=== PATIENT | female | born 1950 | race Two or more races ===

== ENCOUNTER 2019-05-02 11:18 | Emergency (ER) | payer MEDICARE, OTHER ==
[~2019-05-02] VITALS: Ht 142.2 cm; Wt 72.6 kg
[2019-05-02 11:43] VITALS: BP 159/68
--- NOTE | 2019-05-02 12:40 | PHYS DOC ---
Past Medical History Past Medical History: Other Additional Past Medical Histor: RENAL FAILURE Past Surgical History: Appendectomy, Hysterectomy Additional Past Surgical Histo: LEFT ARM FISTULA Alcohol Use: None Drug Use: None Adult General Chief Complaint Chief Complaint: NAUSEA/VOMITING/DIARRHA HPI HPI Patient is a 68-year-old female who presents to the emergency department for evaluation. History was obtained via a bilingual nurse serving as credit card associate. Patient states that this morning she awakened with some upper abdominal discomfort and vomited once. While vomiting she felt lightheaded which caused her to become anxious, because she lives alone, so she presented to the emergency department for evaluation. Her dizziness has resolved, but she continues to complain of some mild abdominal pain diffusely mostly in her upper abdomen. She has not had any fevers or chills, diarrhea, hematemesis, chest pain, or shortness of breath. She denies any headache. Her last dialysis was yesterday and his next scheduled for tomorrow. There are no alleviating or exac erbating factors to her symptoms otherwise. Review of Systems Review of Systems Constitutional: Denies fever or chills [] Eyes: Denies change in visual acuity, redness, or eye pain [] HENT: Denies nasal congestion or sore throat [] Respiratory: Denies cough or shortness of breath [] Cardiovascular: The patient denies any shortness of breath, chest pain, pal pitations, or orthopnea [] GI: Denies bloody emesis, bloody stools or diarrhea [] : Denies dysuria or hematuria, makes only minute amounts of urine [] Musculoskeletal: Denies back pain or joint pain [] Integument: Denies rash or skin lesions [] Neurologic: Denies headache, focal weakness or sensory changes [] Endocrine: Denies polyuria or polydipsia [] All other systems were reviewed and found to be within normal limits, except as documented in this note. Current Medications Current Medications Current Medications Medications (Trade) Dose Ordered Sig/Nito Start Time Stop Time Status Last Admin Dose Admin Morphine Sulfate (Morphine Sulfate) 4 mg PRN Q15MIN PRN 05/02/19 12:45 05/03/19 12:44 05/02/19 12:50 4 MG Ondansetron HCl (Zofran) 4 mg 1X ONCE 05/02/19 14:15 05/02/19 14:19 DC 05/02/19 14:27 4 MG Allergies Allergies Allergies Coded Allergies Type Severity Reaction Last Updated Verified No Known Drug Allergies 05/02/19 No Physical Exam Physical Exam PHYSICAL EXAM: CONSTITUTIONAL: Well developed, well nourished HEAD: normocephalic, atraumatic EENT: PERRL, EOMI. Conjunctivae normal color, sclerae non-icteric; moist mucous membranes. NECK: Supple, non-tender; no meningismus. LUNGS: Lungs CTA, breathing even and unlabored. Normal air movement. HEART: Regular rate and rhythm, no murmur CHEST: No deformity; non-tender ABDOMEN: The abdomen is soft, there is mild diffuse tenderness to palpation to the entire abdomen, most prominent in the epigastric area, Cervantes sign is absent, although there is some right upper quadrant tenderness, there is no rebound or guarding, normal bowel sounds are present, no masses or bruits. EXTREM: Normal ROM; no deformity, no calf tenderness. Normal pulses palpable in all extremities. There is no pedal edema. SKIN: No rash; no diaphoresis NEURO: Alert; normal speech and cognition; CN's grossly intact; strength grossly intact without focal deficit. BACK: No CVA TTP. Current Patient Data Vital Signs Vital Signs Date Time Temp Pulse Resp B/P (MAP) Pulse Ox O2 Delivery O2 Flow Rate FiO2 05/02/19 11:43 98.5 79 18 159/68 (98) 100 Room Air 98.5 Lab Values Laboratory Tests Test 05/02/19 12:00 05/02/19 13:35 White Blood Count 1.2 x10^3/uL (4.0-11.0) *L Red Blood Count 2.99 x10^6/uL (3.50-5.40) L Hemoglobin 10.6 g/dL (12.0-15.5) L Hematocrit 31.4 % (36.0-47.0) L Mean Corpuscular Volume 105 fL (79-100) H Mean Corpuscular Hemoglobin 36 pg (25-35) H Mean Corpuscular Hemoglobin Concent 34 g/dL (31-37) Red Cell Distribution Width 15.2 % (11.5-14.5) H Platelet Count 44 x10^3/uL (140-400) L Neutrophils (%) (Auto) 46 % (31-73) Lymphocytes (%) (Auto) 51 % (24-48) H Monocytes (%) (Auto) 3 % (0-9) Eosinophils (%) (Auto) 0 % (0-3) Basophils (%) (Auto) 1 % (0-3) Neutrophils # (Auto) 0.5 x10^3/uL (1.8-7.7) L Lymphocytes # (Auto) 0.6 x10^3/uL (1.0-4.8) L Monocytes # (Auto) 0.0 x10^3/uL (0.0-1.1) Eosinophils # (Auto) 0.0 x10^3/uL (0.0-0.7) Basophils # (Auto) 0.0 x10^3/uL (0.0-0.2) Segmented Neutrophils % 50 % (35-66) Lymphocytes % 48 % (24-48) Monocytes % 2 % (0-10) Platelet Estimate Decreased (ADEQUATE) Prothrombin Time 13.3 SEC (11.7-14.0) Prothrombin Time INR 1.0 (0.8-1.1) Activated Partial Thromboplast Time 32 SEC (24-38) Sodium Level 149 mmol/L (136-145) H Potassium Level 5.1 mmol/L (3.5-5.1) Chloride Level 106 mmol/L (98-107) Carbon Dioxide Level 33 mmol/L (21-32) H Anion Gap 10 (6-14) Blood Urea Nitrogen 22 mg/dL (7-20) H Creatinine 4.6 mg/dL (0.6-1.0) H Estimated GFR (Cockcroft-Gault) 9.5 BUN/Creatinine Ratio 5 (6-20) L Glucose Level 98 mg/dL (70-99) Calcium Level 9.1 mg/dL (8.5-10.1) Total Bilirubin 1.1 mg/dL (0.2-1.0) H Aspartate Amino Transferase (AST) 14 U/L (15-37) L Alanine Aminotransferase (ALT) 15 U/L (14-59) Alkaline Phosphatase 133 U/L (46-116) H Troponin I Quantitative 0.090 ng/mL (0.000-0.055) Total Protein 7.2 g/dL (6.4-8.2) Albumin 3.8 g/dL (3.4-5.0) Albumin/Globulin Ratio 1.1 (1.0-1.7) Lipase 104 U/L (73-393) Lactic Acid Level 0.6 mmol/L (0.4-2.0) Laboratory Tests 05/02/19 12:00 Laboratory Tests 05/02/19 12:00 EKG EKG [] Normal sinus rhythm with a normal rate, normal axis, normal intervals, there are no acute ischemic ST/T changes. Radiology/Procedures Radiology/Procedures []PROCEDURE: CT ABDOMEN PELVIS WO CONTRAST CT STUDY OF THE ABDOMEN AND PELVIS WITHOUT CONTRAST Clinical indications: Abdominal pain. TECHNIQUE: Noncontrast helical CT scanning of the abdomen and pelvis was performed. Without contrast, the sensitivity to detect organ pathology and GI tract pathology is decreased. PQRS compliance Statement One or more of the following individualized dose reduction techniques were utilized for this study: 1. Automated exposure control 2. Adjustment of the mA and/or kV according to patient size 3. Use of iterative reconstruction technique COMPARISON: None available. FINDINGS: The liver and spleen and pancreas are unremarkable on this noncontrast study. The gallbladder is normal and no extra hepatic biliary ductal dilatation is seen. No adrenal mass is evident. No hydronephrosis or hydroureter is seen on either side. No urinary tract stone is evident. Perinephric inflammatory change is seen bilaterally. Urinary bladder wall is smooth. No uterine mass is evident. No dominant ovarian cyst or mass is seen. No focal aneurysmal dilatation of the abdominal aorta is seen. No enlarged abdominal or pelvic lymphadenopathy is evident. The terminal ileum is unremarkable. Surgical clips are seen adjacent to the base of the cecum consistent with a previous appendectomy. No obstructive bowel pattern is evident. No free air or free fluid or mesenteric edema is seen. No lytic process is evident. No lung base consolidation is seen. IMPRESSION: Bilateral perinephric inflammatory change is seen. This may be seen with pyelonephritis if there are clinical findings of such. No obstructive uropathy is evident otherwise. No other acute abnormality is evident. PROCEDURE: ABDOMEN LTD Limited abdomen ultrasound HISTORY: Right upper quadrant pain. FINDINGS: Visualized pancreas appears unremarkable. Inferior vena cava is visualized. Liver appears unremarkable without enlargement or definite focal lesion. Gallbladder contains several small echogenic structures, most likely gallstones. Note that these do not all appear dependent, however. Gallbladder wall thickness measures 2.4 mm. No significant pericholecystic fluid. No significant biliary ductal dilatation. Right kidney measures 7.7 cm longitudinal without hydronephrosis. IMPRESSION: 1. Several small echogenic structures within the gallbladder suspicious for gallstones, although note that these do not all demonstrate typical dependent layering. Gallbladder wall thickness upper limits but not definitely abnormal. Short-term ultrasound follow-up could be of benefit depending on clinical management. Findings discussed with Dr. Brian in the emergency room at the time of this report. 2. Small or atrophic right kidney. Course & Med Decision Making Course & Med Decision Making Pertinent Labs and Imaging studies reviewed. (See chart for details) [] 2:40 PM: The patient's condition remains stable. She is feeling significantly better at this time. I am uncertain of the etiology of her symptoms. I discussed overnight observation with the patient but she feels well enough to go home and would like to do so. I did obtain labs from her dialysis center, drawn 04/15, and her hematological abnormalities which are present today were present then as well, with a white count of 1.6 and a platelet count of 34 as well. I discussed importance of outpatient follow-up and return precautions in detail.I am unable to assess her rule out the possibility of a UTI because the patient does not make any significant amounts of urine and is not able to provide a urine specimen in the emergency department. She'll be treated empirically based on the CT findings. Dragon Disclaimer Dragon Disclaimer This electronic medical record was generated, in whole or in part, using a voice recognition dictation system. Departure Departure Impression: Primary Impression: Nausea & vomiting Additional Impressions: ESRD (end stage renal disease) Leukopenia Disposition: 01 HOME, SELF-CARE Condition: STABLE Referrals: MEDHAT DIMAS MD Patient Instructions: Nausea and Vomiting Scripts Ondansetron Hcl (ZOFRAN) 4 Mg Tablet 1 TAB PO Q6HRS PRN for NAUSEA/VOMITING, #20 TAB Prov: KRISSY BRIAN MD 05/02/19 Cephalexin (KEFLEX) 500 Mg Capsule 500 MG PO QID for 7 Days, #28 CAP Prov: KRISSY BRIAN MD 05/02/19 Problem Qualifiers KRISSY BRIAN MD May 02, 2019 12:40
[2019-05-02] MEDS ORDERED: MORPHINE SULFATE 4 MG/ML VIAL. IV/SQ PRN (12:45)
--- NOTE | 2019-05-02 12:45 | EKG ---
[facility] [address] [place] [address] Test Date: 2019-05-02 Test Time: 11:54:49 Pat Name: RICCARDO PEÑA Department: Room: Gender: F Clamper: : 1950 Requested By: KRISSY BRIAN Order Number: [id number] Reading MD: Measurements Intervals [place] Rate: 73 P: 38 WV: 154 QRS: 16 QRSD: 84 T: 29 QT: 394 QTc: 437 Interpretive Statements SINUS RHYTHM NORMAL ECG No previous ECG available for comparison
[2019-05-02 13:22] LABS: BASO % 1 % (0-3); CALCIUM 9.1 mg/dL (8.5-10.1); CREATININE 4.6 mg/dL (0.6-1.0); EOS % 0 % (0-3); GFR 9.5; HEMATOCRIT 31.4 % (36.0-47.0); HEMOGLOBIN 10.6 g/dL (12.0-15.5); LYMPH # 0.6 x10^3/uL (1.0-4.8); LYMPH % 51 % (24-48); MEAN CORPUSCULAR HEMOGLOBIN 36 pg (25-35); MEAN CORPUSCULAR HGB CONC 34 g/dL (31-37); MEAN CORPUSCULAR VOLUME 105 fL (79-100); MONO % 3 % (0-9); NEUT # 0.5 x10^3/uL (1.8-7.7); NEUT % 46 % (31-73); PLATELET COUNT 44 x10^3/uL (140-400); POTASSIUM 5.1 mmol/L (3.5-5.1); RED BLOOD COUNT 2.99 x10^6/uL (3.50-5.40); RED CELL DISTRIBUTION WIDTH 15.2 % (11.5-14.5)
[2019-05-02 13:23] LABS: PROTHROMBIN TIME PATIENT 13.3 SEC (11.7-14.0)
[2019-05-02 13:25] LABS: WHITE BLOOD COUNT 1.2 x10^3/uL (4.0-11.0)
[2019-05-02 13:27] LABS: ALBUMIN 3.8 g/dL (3.4-5.0); ALBUMIN/GLOBULIN RATIO 1.1 (1.0-1.7); TOTAL BILIRUBIN 1.1 mg/dL (0.2-1.0); TOTAL PROTEIN 7.2 g/dL (6.4-8.2)
--- NOTE | 2019-05-02 13:41 | RAD ---
Limited abdomen ultrasound HISTORY: Right upper quadrant pain. FINDINGS: Visualized pancreas appears unremarkable. Inferior vena cava is visualized. Liver appears unremarkable without enlargement or definite focal lesion. Gallbladder contains several small echogenic structures, most likely gallstones. Note that these do not all appear dependent, however. Gallbladder wall thickness measures 2.4 mm. No significant pericholecystic fluid. No significant biliary ductal dilatation. Right kidney measures 7.7 cm longitudinal without hydronephrosis. IMPRESSION: 1. Several small echogenic structures within the gallbladder suspicious for gallstones, although note that these do not all demonstrate typical dependent layering. Gallbladder wall thickness upper limits but not definitely abnormal. Short-term ultrasound follow-up could be of benefit depending on clinical management. Findings discussed with Dr. Mora in the emergency room at the time of this report. 2. Small or atrophic right kidney. Electronically signed by: Antony Norris MD (05/02/2019 1:38 PM) [id number]
[2019-05-02 14:07] LABS: % LYMPHS 48 % (24-48); % MONOS 2 % (0-10); % SEGS 50 % (35-66); PLT ESTIMATE DECREASED (ADEQUATE)
[2019-05-02] MEDS ORDERED: ONDANSETRON PF 4 MG/2 ML VIAL. IVP ONE (14:15)
--- NOTE | 2019-05-02 14:19 | RAD ---
CT STUDY OF THE ABDOMEN AND PELVIS WITHOUT CONTRAST Clinical indications: Abdominal pain. TECHNIQUE: Noncontrast helical CT scanning of the abdomen and pelvis was performed. Without contrast, the sensitivity to detect organ pathology and GI tract pathology is decreased. PQRS compliance Statement One or more of the following individualized dose reduction techniques were utilized for this study: 1. Automated exposure control 2. Adjustment of the mA and/or kV according to patient size 3. Use of iterative reconstruction technique COMPARISON: None available. FINDINGS: The liver and spleen and pancreas are unremarkable on this noncontrast study. The gallbladder is normal and no extra hepatic biliary ductal dilatation is seen. No adrenal mass is evident. No hydronephrosis or hydroureter is seen on either side. No urinary tract stone is evident. Perinephric inflammatory change is seen bilaterally. Urinary bladder wall is smooth. No uterine mass is evident. No dominant ovarian cyst or mass is seen. No focal aneurysmal dilatation of the abdominal aorta is seen. No enlarged abdominal or pelvic lymphadenopathy is evident. The terminal ileum is unremarkable. Surgical clips are seen adjacent to the base of the cecum consistent with a previous appendectomy. No obstructive bowel pattern is evident. No free air or free fluid or mesenteric edema is seen. No lytic process is evident. No lung base consolidation is seen. IMPRESSION: Bilateral perinephric inflammatory change is seen. This may be seen with pyelonephritis if there are clinical findings of such. No obstructive uropathy is evident otherwise. No other acute abnormality is evident. Electronically signed by: Rehan Daniel MD (05/02/2019 2:15 PM) [id number]
[2019-05-02] MEDS ORDERED: CEPH-264 PO (14:44)
[2019-05-02] MEDS ORDERED: ONDA4TAB7 PO (14:44)
[2019-05-02] MEDS ORDERED: cefTRIAXone IV Push 1 GM VIAL. IVP ONE (14:45)
== END 2019-05-02 15:10 | disposition home or self-care (01) ==
LOC: ER 11:18
DX: N18.6 End stage renal disease (principal); D72.819 Decreased white blood cell count, unspecified; R11.2 Nausea with vomiting, unspecified; Z90.89 Acquired absence of other organs; Z90.710 Acquired absence of both cervix and uterus
CPT/HCPCS: 36415; 74176; 76705; 80053; 83605; 83690; 84484; 85007; 85025; 85610; 85730; 93005; 96374; 96375; 99285; J0696; J2270; J2405

== ENCOUNTER 2019-07-08 23:07 | Inpatient (IN) | payer MEDICARE, OTHER ==
[~2019-07-08] VITALS: Ht 152.4 cm; Wt 53.7 kg
[~2019-07-08 23:07] MED LIST: CEPH-264 PO; ONDA4TAB7 PO
[2019-07-08 23:40] LABS: CALCIUM 8.3 mg/dL (8.5-10.1); CREATININE 3.7 mg/dL (0.6-1.0); GFR 12.3
[2019-07-08 23:45] LABS: ALBUMIN 3.5 g/dL (3.4-5.0); ALBUMIN/GLOBULIN RATIO 0.9 (1.0-1.7); BASO % 0 % (0-3); EOS % 0 % (0-3); LYMPH # 0.8 x10^3/uL (1.0-4.8); LYMPH % 55 % (24-48); MEAN CORPUSCULAR HEMOGLOBIN 38 pg (25-35); MEAN CORPUSCULAR HGB CONC 35 g/dL (31-37); MEAN CORPUSCULAR VOLUME 109 fL (79-100); MONO # 0.5 x10^3/uL (0.0-1.1); MONO % 39 % (0-9); NEUT # 0.1 x10^3/uL (1.8-7.7); NEUT % 6 % (31-73); RED BLOOD COUNT 1.75 x10^6/uL (3.50-5.40); RED CELL DISTRIBUTION WIDTH 15.3 % (11.5-14.5); TOTAL BILIRUBIN 1.1 mg/dL (0.2-1.0); TOTAL PROTEIN 7.6 g/dL (6.4-8.2)
--- NOTE | 2019-07-08 23:46 | PHYS DOC ---
Past Medical History Past Medical History: High Cholesterol, Hypertension, Other Additional Past Medical Histor: RENAL FAILURE Past Surgical History: Appendectomy, Hysterectomy Additional Past Surgical Histo: LEFT ARM FISTULA Alcohol Use: None Drug Use: None Adult General Chief Complaint Chief Complaint: DENTAL PROBLEM HPI HPI Patient is a 68-year-old female who presents with report of bleeding gums that started this evening. Patient indicates that she started the taste something salty in her mouth and looked and saw that she had some bleeding gums. Patient states that she decided to brush her teeth at this point and the bleeding got worse. Patient states that she has never had this happen before. Patient is on hemodialysis and was dialyzed earlier today.[] Review of Systems Review of Systems Constitutional: Denies fever or chills [] HENT: Positive bleeding gums[] Respiratory: Denies cough or shortness of breath [] Cardiovascular: No additional information not addressed in HPI [] Integument: Denies rash or skin lesions [] All other systems were reviewed and found to be within normal limits, except as documented in this note. Current Medications Current Medications Current Medications Medications (Trade) Dose Ordered Sig/Nito Start Time Stop Time Status Last Admin Dose Admin Ondansetron HCl (Zofran) 4 mg PRN Q8HRS PRN 07/09/19 00:30 07/10/19 00:29 Allergies Allergies Allergies Coded Allergies Type Severity Reaction Last Updated Verified No Known Drug Allergies 05/02/19 No Physical Exam Physical Exam Constitutional: Well developed, well nourished, no acute distress, non-toxic appearance. [] HENT: Normocephalic, atraumatic, bilateral external ears normal, oropharynx moist, examination of mouth demonstrates gingival bleeding diffusely, nose normal. [] Eyes: PERRLA, EOMI, conjunctiva normal, no discharge. [] Neck: Normal range of motion, no tenderness, supple. [] Cardiovascular: Regular rate and rhythm[] Lungs & Thorax: Bilateral breath sounds clear to auscultation [] Abdomen: Bowel sounds normal, soft, no tenderness. [] Skin: Warm, dry, no erythema, no rash. [] Extremities: No tenderness, no cyanosis, no clubbing, ROM intact, no edema. [] Neurologic: Awake and alert, no focal deficits noted. [] Current Patient Data Vital Signs Vital Signs Date Time Temp Pulse Resp B/P (MAP) Pulse Ox O2 Delivery O2 Flow Rate FiO2 07/08/19 23:10 98.2 101 14 145/65 (91) 100 Room Air 98.2 Lab Values Laboratory Tests Test 07/08/19 23:25 White Blood Count 1.4 x10^3/uL (4.0-11.0) *L Red Blood Count 1.75 x10^6/uL (3.50-5.40) L Hemoglobin 6.6 g/dL (12.0-15.5) *L Hematocrit 19.0 % (36.0-47.0) *L Mean Corpuscular Volume 109 fL (79-100) H Mean Corpuscular Hemoglobin 38 pg (25-35) H Mean Corpuscular Hemoglobin Concent 35 g/dL (31-37) Red Cell Distribution Width 15.3 % (11.5-14.5) H Platelet Count 9 x10^3/uL (140-400) *L Neutrophils (%) (Auto) 6 % (31-73) L Lymphocytes (%) (Auto) 55 % (24-48) H Monocytes (%) (Auto) 39 % (0-9) H Eosinophils (%) (Auto) 0 % (0-3) Basophils (%) (Auto) 0 % (0-3) Neutrophils # (Auto) 0.1 x10^3/uL (1.8-7.7) L Lymphocytes # (Auto) 0.8 x10^3/uL (1.0-4.8) L Monocytes # (Auto) 0.5 x10^3/uL (0.0-1.1) Eosinophils # (Auto) 0.0 x10^3/uL (0.0-0.7) Basophils # (Auto) 0.0 x10^3/uL (0.0-0.2) Platelet Estimate Pending Prothrombin Time 13.4 SEC (11.7-14.0) Prothrombin Time INR 1.1 (0.8-1.1) Activated Partial Thromboplast Time 37 SEC (24-38) Sodium Level 141 mmol/L (136-145) Potassium Level 4.0 mmol/L (3.5-5.1) Chloride Level 103 mmol/L (98-107) Carbon Dioxide Level 34 mmol/L (21-32) H Anion Gap 4 (6-14) L Blood Urea Nitrogen 12 mg/dL (7-20) Creatinine 3.7 mg/dL (0.6-1.0) H Estimated GFR (Cockcroft-Gault) 12.3 BUN/Creatinine Ratio 3 (6-20) L Glucose Level 120 mg/dL (70-99) H Calcium Level 8.3 mg/dL (8.5-10.1) L Total Bilirubin 1.1 mg/dL (0.2-1.0) H Aspartate Amino Transferase (AST) 18 U/L (15-37) Alanine Aminotransferase (ALT) 9 U/L (14-59) L Alkaline Phosphatase 120 U/L (46-116) H Total Protein 7.6 g/dL (6.4-8.2) Albumin 3.5 g/dL (3.4-5.0) Albumin/Globulin Ratio 0.9 (1.0-1.7) L Laboratory Tests 07/08/19 23:25 Laboratory Tests 07/08/19 23:25 EKG EKG [] Radiology/Procedures Radiology/Procedures [] Course & Med Decision Making Course & Med Decision Making Pertinent Labs and Imaging studies reviewed. (See chart for details) Upon completion of workup, patient's case discussed with Dr. Donaldson along with HIT being in the differential. I did discuss option of treating with IVIG empirically; however, Dr. Donaldson wishes to wait for Dr. Rivera's assessment first. Patient will be transfused one unit of packed red blood cells and 2 units of platelets as discussed with Dr Donaldson. Dragon Disclaimer Dragon Disclaimer This electronic medical record was generated, in whole or in part, using a voice recognition dictation system. Departure Departure Impression: Primary Impression: Pancytopenia Additional Impressions: Acute blood loss anemia Gingival bleeding Disposition: ADMITTED INPATIENT Admitting Physician: Sherif Donaldson Condition: GOOD Referrals: NO PCP (PCP) Problem Qualifiers ANGELITO KENNY Jr. DO Jul 08, 2019 23:46
[2019-07-08 23:51] LABS: PROTHROMBIN TIME PATIENT 13.4 SEC (11.7-14.0)
[2019-07-09] VITALS (12 sets, daily range): BP systolic 119–140; BP diastolic 60–82
[2019-07-09 00:05] LABS: HEMOGLOBIN 6.6 g/dL (12.0-15.5); PLATELET COUNT 9 x10^3/uL (140-400); WHITE BLOOD COUNT 1.4 x10^3/uL (4.0-11.0)
[2019-07-09] MEDS ORDERED: ONDANSETRON PF 4 MG/2 ML VIAL. IV PRN (00:30)
--- NOTE | 2019-07-09 02:32 | NUR ---
Pt arrived to room 256 per wheelchair accompanied by son,pt oriented to surroundings vs obtained and stable assessment completed pt denies pain at time of assessment. Poc explained pt call light placed in reach pt reminded to call for assistance prior to getting oob. Pt spitting out bright red blood during assessment will continue to monitor pt.
--- NOTE | 2019-07-09 02:35 | NUR ---
Pt first unit of Prbc's started and pt tolerated well will continue to monitor.
[2019-07-09] MEDS ORDERED: AMLO5TAB10 PO (02:41)
[2019-07-09] MEDS ORDERED: ATOR40TA59 PO (02:41)
[2019-07-09] MEDS ORDERED: FOLI0.8C PO (02:41)
[2019-07-09] MEDS ORDERED: ASPI81TA59 PO (02:41)
--- NOTE | 2019-07-09 05:04 | NUR ---
Pt platlets infusing as per order, will cont to monitor. pmrn
--- NOTE | 2019-07-09 05:28 | NUR ---
pt platlet transfusion complete, pt tolerated well, family at bedside will cont to monitor pt status and safety. pmrn
[2019-07-09 07:33] LABS: BASO % 0 % (0-3); EOS % 0 % (0-3); HEMATOCRIT 21.3 % (36.0-47.0); HEMOGLOBIN 7.4 g/dL (12.0-15.5); LYMPH # 0.6 x10^3/uL (1.0-4.8); LYMPH % 44 % (24-48); MEAN CORPUSCULAR HEMOGLOBIN 37 pg (25-35); MEAN CORPUSCULAR HGB CONC 35 g/dL (31-37); MEAN CORPUSCULAR VOLUME 105 fL (79-100); MONO # 0.7 x10^3/uL (0.0-1.1); MONO % 49 % (0-9); NEUT # 0.1 x10^3/uL (1.8-7.7); NEUT % 7 % (31-73); PLATELET COUNT 38 x10^3/uL (140-400); RED BLOOD COUNT 2.02 x10^6/uL (3.50-5.40); RED CELL DISTRIBUTION WIDTH 16.2 % (11.5-14.5)
[2019-07-09 07:49] LABS: WHITE BLOOD COUNT 1.3 x10^3/uL (4.0-11.0)
--- NOTE | 2019-07-09 09:16 | NUR ---
SW following. JUDY contacted [facility] stating pt needing transfer to for suspected Leukemia which we are unable to treat. Dr. Rivera had apparently contacted and there is an accepting physician, Dr. Tang. [facility] contact transfer line ([phone], fax: [phone]). [facility] faxed clinical information. Awaiting confirmation. JUDY notified. Addendum: 07/09/19 at 1151 by RANDEE GONZALEZ Pt accepted for transfer to . First in line for [facility] transportation. JUDY notified.
[2019-07-09 09:38] LABS: % LYMPHS 45 % (24-48); % MONOS 4 % (0-10); % SEGS 4 % (35-66); NUCLEATED RBC 1
[2019-07-09 09:45] LABS: PLT ESTIMATE DECREASED (ADEQUATE)
[2019-07-09 09:46] LABS: ANISOCYTOSIS SLIGHT; POLYCHROMASIA SLIGHT
[2019-07-09 09:47] LABS: OVALOCYTES FEW; TEAR DROP CELLS OCC
[2019-07-09 09:48] LABS: % BLASTS 47 % (0-0)
--- NOTE | 2019-07-09 11:00 | PDOC ---
Provider Note Provider Note H&P dictated.#[id number]. ANALILIA ARREGUIN MD Jul 09, 2019 11:00
--- NOTE | 2019-07-09 11:11 | PDOC ---
Provider Note Provider Note Hem/Onc Consult: PANCYTOPENIA WITH MARKED ABSOLUTE NEUTROPENIA AND MANY CIRCULATING BLASTS NOTED. FINDINGS ARE COMPATIBLE WITH AN ACUTE LEUKEMIA. I d/w DR Mirna Veliz, PATHOLOGIST. I d/w Dr Zach Da Silva at Leukemia service who will accept pt in transfer for further management. See dictation # [id number] KINSEY GOLDMAN MD Jul 09, 2019 11:11
--- NOTE | 2019-07-09 11:21 | HP ---
ADMIT DATE: 07/09/2019 MEDICAL HISTORY AND PHYSICAL AND PROBABLE DISCHARGE SUMMARY REASON FOR ADMISSION TO THE HOSPITAL: Pancytopenia, possible acute leukemia. ATTENDING PHYSICIAN: Dr. Donaldson. PRIMARY CARE PHYSICIAN: Dr. Chau. HISTORY OF PRESENT ILLNESS: The patient is a 68-year-old female, patient of my partner, Dr. Chau. She says she has been relatively well except lately she noticed some bleeding per the gums when she started brushing and she came to the Emergency Room. Her platelets were low, 9000; white count, low, 11.4; hemoglobin 7, seen by Hematology at [place], recommended the patient transferred to for possible acute leukemia. PAST MEDICAL HISTORY: Hypertension, hyperlipidemia, chronic kidney disease, on dialysis. PAST SURGICAL HISTORY: Appendectomy, hysterectomy, AV fistula. ALLERGIES: No known drug allergies. MEDICATIONS AT HOME: Amlodipine 5 mg daily, aspirin 81 mg daily, atorvastatin 40 mg daily, folic acid 1 daily. PERSONAL HISTORY: No history of smoking, alcohol, drug abuse. FAMILY HISTORY: Positive for hypertension, kidney problems. REVIEW OF SYMPTOMS: Complains of bleeding per grams. No bleeding per rectum. No vomiting blood. Denies any fever. Rest of the 14-system was reviewed and negative. PHYSICAL EXAMINATION: GENERAL: The patient is not in any distress at the time of admission. VITAL SIGNS: Temperature 98, pulse 86, respirations 16, blood pressure 125/60, 97 on room air. HEENT: Head is atraumatic. Pupils equal. Oral cavity, some bleeding around the gums, has a blister in the left lip. NECK: Supple. Thyroid not enlarged. JVD not elevated. CHEST: Symmetrical. CARDIOVASCULAR: S1, S2. LUNGS: Clear. ABDOMEN: Soft. There is a scar in the lower abdomen, benign. No masses palpable. EXTERNAL GENITALIA: Deferred. RECTAL: Deferred. EXTREMITIES: No calf tenderness, no edema. Pulses 1+. NEUROLOGIC: Moving all extremities. No focal deficits noted. The patient has AV shunt present. LABORATORY DATA: Shows a white count of 1.4, hemoglobin 6.6, platelets 9000. INR 1.1. Electrolytes show sodium 141, potassium 4.0, chloride 103, bicarbonate 34, BUN 12, creatinine 3.7, glucose 120. LFTs normal. FINAL IMPRESSION: 1. Acute leukemia. 2. Pancytopenia. 3. End-stage renal disease, on dialysis. 4. Hyperlipidemia. PLAN: At this time, the patient was seen by Hematology at [place] and recommended transfer to for further treatment. Transfer being arranged. In the meantime, continue dialysis Monday, Monday and Monday. ANALILIA DONALDSON MD DR: BRENDA/keri JOB#: [id number] / [id number] [place] Chau Dr.
--- NOTE | 2019-07-09 12:01 | CONS ---
DATE OF CONSULTATION: 07/09/2019 REQUESTING PHYSICIAN: Sherif Donaldson MD REASON FOR CONSULTATION: Pancytopenia. HISTORY OF PRESENT ILLNESS: The patient is a 68-year-old female who noticed significant gum bleeding on 07/09/2019. It was an acute onset of gum bleeding and she has not had any such issues until the evening of 07/08/2019. She denies any nosebleeds. No hematemesis, melena or hematochezia. No hemoptysis or hematuria. No loss of weight or loss of appetite. No fever, chills or night sweats. PAST MEDICAL HISTORY: Hypercholesterolemia, hypertension; end-stage renal disease, on hemodialysis at least since 2017 per the patient. PAST SURGICAL HISTORY: Appendectomy and hysterectomy, left arm fistula. SOCIAL HISTORY: No smoking or alcohol abuse. FAMILY HISTORY: No history of leukemia or any other malignancy in the family. REVIEW OF SYSTEMS: A 12-point review of system was performed. Pertinent positives are mentioned in the history of present illness. Rest of the system review is negative. PHYSICAL EXAMINATION: GENERAL APPEARANCE: The patient is a 68-year-old female who is in no acute cardiorespiratory distress. VITAL SIGNS: Blood pressure 137/63, temperature 97.8. HEENT: Atraumatic, normocephalic. EYES: No icterus. NECK: Supple. CHEST: Bilaterally symmetrical. HEART: S1, S2 normal. ABDOMEN: Soft, nontender. CENTRAL NERVOUS SYSTEM: No focal deficits. LYMPHATICS: No lymphadenopathy. SKIN: Warm and dry. PSYCHOLOGIC: Mood and affect are appropriate. MUSCULOSKELETAL: No joint effusions. LABORATORY DATA: On 07/08/2019; WBC 1.4, hemoglobin 6.6, platelet count 9000 with 47% blasts. She received platelet transfusion and platelets improved to 38,000 on 07/09/2019. IMPRESSION AND PLAN: 1. Acute leukemia. CBC on 07/08/2019 revealed WBC of 1.6 with 47% blasts. Hemoglobin was 6.6 with a platelet count of 9000. I discussed with the pathologist who reviewed the peripheral smear and confirmed that the patient has 47% blasts. I reviewed the case with leukemia team, Dr. Zach Da Silva. Dr. Da Silva recommended transferring the patient to [facility] for further diagnostic workup and chemotherapy. I discussed with the registered nurse and I also discussed with Dr. Vinaya Koduri. There is no capability to treat acute leukemia at this center and hence the patient will be transferred to [facility]. I discussed with the patient and her son Hansel and they understand and agree with the plan. 2. Severe thrombocytopenia, resulting in significant gum bleeding. The patient received platelet transfusion and platelets improved to 38,000. 3. Neutropenia due to leukemia. Continue to monitor. 4. Anemia with a hemoglobin of 6.6 on 07/08/2019, status post 1 unit of PRBC. Hemoglobin improved to 7.4 on 07/09/2019. KINSEY GOLDMAN MD DR: HALLIE/keri JOB#: [id number] / [id number] BLAN[place]
--- NOTE | 2019-07-09 12:14 | NUR ---
Discharge Note: [facility] Transfer instructions and transfer home medications reviewed with JUDY Martínez at and a copy given to ambulance personel. Chart reviewed with RN as well as the plan of care and reason for transfer. All questions have been answered and understanding verbalized. Patients son, Hansel, was notified that patient is being transferred to as soon as possible and room number was given to son.
--- NOTE | 2019-07-09 13:40 | NUR ---
Patient just left via ambulance
--- NOTE | 2019-07-10 15:22 | PDOC ---
Provider Note Provider Note Discharge summary dictated ANALILIA ARREGUIN MD Jul 10, 2019 15:22
--- NOTE | 2019-07-11 00:01 | DS ---
DATE OF DISCHARGE: 07/09/2019 CONSULTATION: Dr. Jakub Rivera. PROCEDURES DONE: Transfuse 2 units of platelets. HOSPITAL COURSE: The patient is a 68-year-old female, patient of Dr. Chau. The patient was complaining of bleeding per gums, was brought to the hospital. She was found to have pancytopenia. Her white count was 1.4, hemoglobin 6.6, platelets 9, was given 1 unit of packed rbc's, platelets 1 unit. Hemoglobin went up to 7.4, platelets 38. The patient was seen by Dr. Rivera, Hematology, who suspected that the patient probably could have acute leukemia and the patient was transferred to [facility]. The patient has a chronic kidney disease, on hemodialysis; also history of hypertension and hyperlipidemia, stable. FINAL DIAGNOSES: 1. Pancytopenia, possible acute leukemia, transferred to [facility]. 2. End-stage renal disease, on hemodialysis. 3. Hypertension. 4. Hyperlipidemia. 5. The patient received 1 unit of packed red blood cells and 1 unit of platelets while she was at the [facility]. ANALILIA ARREGUIN MD DR: BRENDA/keri JOB#: [id number] / [id number] GLORIA Lopez
== END 2019-07-09 13:45 | disposition short-term general hospital (02) | DRG 834 ==
LOC: ER 23:07 → 2 SOUTH 07-09 00:21
PROVIDERS: ADMIT Internal Medicine; ATTEND Internal Medicine
PROC: 30233R1 Transfusion of Nonautologous Platelets into Peripheral Vein, Percutaneous Approach (ICD-10-PCS; principal; 2019-07-09)
PROC: 30233N1 Transfusion of Nonautologous Red Blood Cells into Peripheral Vein, Percutaneous Approach (ICD-10-PCS; 2019-07-09)
DX: C95.00 Acute leukemia of unspecified cell type not having achieved remission (principal); N18.6 End stage renal disease; D61.818 Other pancytopenia; I12.0 Hypertensive chronic kidney disease with stage 5 chronic kidney disease or end stage renal disease; D62 Acute posthemorrhagic anemia; K06.8 Other specified disorders of gingiva and edentulous alveolar ridge; E78.00 Pure hypercholesterolemia, unspecified; E78.5 Hyperlipidemia, unspecified; Z82.49 Family history of ischemic heart disease and other diseases of the circulatory system; Z90.49 Acquired absence of other specified parts of digestive tract; Z90.710 Acquired absence of both cervix and uterus; Z99.2 Dependence on renal dialysis
CPT/HCPCS: 36415; 36430; 80053; 85007; 85025; 85610; 85730; 86850; 86900; 86901; 86920; P9016; P9035; 99285-25; G0378